=== PATIENT | female | born 1935 | race Caucasian/White ===

== ENCOUNTER 2019-03-18 14:45 | Inpatient (IN) | payer OTHER ==
[~2019-03-18] VITALS: Ht 147.3 cm; Wt 45.4 kg
--- NOTE | 2019-03-18 15:04 | NUR ---
Patient to ER bed 2 to gown for evaluation. Side rails up. Report given to Javier DOUGLAS.
[2019-03-18 15:13] VITALS: BP_SYST 147
--- NOTE | 2019-03-18 15:20 | NUR ---
Patient is awake, alert, and oriented x1. Patient states she for her blood pressure spiking and being controlled by her medication. Her board & care sent for weakness via EMS. Patient does not appear to be in any distress and vitals are within normal limits.
--- NOTE | 2019-03-18 15:40 | NUR ---
ER Dr. Duvall at bedside examining patient.
[2019-03-18] MEDS ORDERED: NS 500 ML IV ONE (15:45)
[2019-03-18 16:27] LABS: BASOPHILS # (AUTO) 0.2 K/uL (0.0-0.2); BASOPHILS % (AUTO) 3.5 % (0.0-2.0); EOSINOPHILS # (AUTO) 0.2 K/uL (0.0-0.4); EOSINOPHILS % (AUTO) 2.7 % (0.0-4.0); HEMATOCRIT 36.8 % (36-48); HEMOGLOBIN 12.2 g/dL (12.0-16.0); LYMPHOCYTES # (AUTO) 0.8 K/uL (1.0-5.5); LYMPHOCYTES % (AUTO) 12.5 % (20.5-51.5); MEAN CORPUSCULAR HEMOGLOBIN 32 pg (27-31); MEAN CORPUSCULAR HGB CONC 33 % (32-36); MEAN CORPUSCULAR VOLUME 95 fL (79.0-98.0); MONOCYTES # (AUTO) 0.8 K/uL (0.0-1.0); MONOCYTES % (AUTO) 11.9 % (1.7-9.3); NEUTROPHILS # (AUTO) 4.5 K/uL (1.8-7.7); NEUTROPHILS % (AUTO) 69.4 % (40.0-70.0); PLATELET COUNT (AUTO) 297 K/uL (130-430); RED BLOOD CELL COUNT(AUTO) 3.89 MIL/uL (4.2-6.2); WHITE BLOOD COUNT (AUTO) 6.5 K/uL (4.8-10.8)
[2019-03-18 16:30] LABS: ANION GAP 7 (5-15); CALCIUM 9.6 mg/dL (8.4-11.0); CHLORIDE 100 mmol/L (98-107); CREATININE 0.54 mg/dL (0.55-1.30); GLUCOSE 94 mg/dL (70-99); POTASSIUM 3.8 mmol/L (3.5-5.1); SODIUM SERUM 134 mmol/L (136-145); UREA NITROGEN, BLOOD 11 mg/dL (8-21)
[2019-03-18 16:36] LABS: PROTHROMBIN TIME 9.9 SECS (9.5-12.5)
[2019-03-18 16:43] LABS: BILIRUBIN,URINE NEGATIVE (NEGATIVE); BLOOD, URINE NEGATIVE (NEGATIVE); CLARITY/URINE CLEAR (CLEAR); COLOR,URINE YELLOW (YELLOW); GLUCOSE,URINE NEGATIVE (NEGATIVE); KETONES,URINE NEGATIVE (NEGATIVE); LEUKOCYTE ESTERASE ,URINE NEGATIVE (NEGATIVE); NITRITE, URINE NEGATIVE (NEGATIVE); PH,URINE 7.5 (5.0-8.0); PROTEIN URINE NEGATIVE (NEGATIVE); UROBILINOGEN,URINE 0.2 (0.2-1.0)
[2019-03-18 16:48] LABS: ALANINE AMINOTRANSFERASE 17 U/L (12-78); ALBUMIN 3.3 g/dL (3.4-4.8); ASPARTATE AMINOTRANSFERASE 18 U/L (10-37); TOTAL BILIRUBIN 0.3 mg/dL (0.0-1.0)
[2019-03-18] MEDS ORDERED: METO25TA3 PO (17:51)
[2019-03-18] MEDS ORDERED: HYDR-4037 PO (17:51)
[2019-03-18] MEDS ORDERED: OCUVITE PO (17:51)
[2019-03-18] MEDS ORDERED: AMLO2.5T2 PO (17:51)
--- NOTE | 2019-03-18 17:51 | NUR ---
Medication reconciliation completed based upon list of medications provided by the facility.
--- NOTE | 2019-03-18 17:57 | NUR ---
Patient will be admitted to care of Dr. Jeni Doss. Admitted to medsurg unit. Aleks RN to call back with room assignment. Belongings list completed. Summary report printed. Report will be given at bedside.
--- NOTE | 2019-03-18 18:10 | NUR ---
Patient transferred to room 132A via daniel and RN with patent and intact IV. Bedside report given to MISAEL Garcia for continuation of care.
--- NOTE | 2019-03-18 18:13 | NUR ---
ADMISSION NOTE Received patient from ER via daniel, received report from RICHELLE DOUGLAS. Patient admitted with diagnosis of . Patient oriented to hospital routine, call light, toileting and safety-patient verbalized understanding.
[2019-03-18 18:22] VITALS: BP_SYST 167
--- NOTE | 2019-03-18 18:50 | NUR ---
RIGHT FACIAL WEAKNESS, DROOP LIKE: Right face is droopy. Per patient it is chronic and its due to fribromyalgia. Patient gets Botox injection every two months.. Bilateral hand with equal lean consultant, bilateral lower extremities with strong pushes.
[2019-03-18] MEDS ORDERED: LORazepam 2 MG/ML VIAL IVP PRN (19:00)
[2019-03-18] MEDS ORDERED: HYDROcodone/ACETAMIN 10-325 MG TAB PO PRN (19:00)
[2019-03-18] MEDS ORDERED: hydrALAZINE HCL 10 MG TABLET PO PRN (19:00)
[2019-03-18] MEDS ORDERED: ACETAMINOPHEN 325 MG TABLET PO PRN (19:00)
[2019-03-18] MEDS ORDERED: HYDROcodone/ACETAMIN 5-325 MG TAB (NORCO/ VICODIN) PO PRN (19:00)
[2019-03-18] MEDS ORDERED: ONDANSETRON HCL 4 MG/2 ML VIAL IVP PRN (19:00)
[2019-03-18 20:20] VITALS: BP_SYST 110
--- NOTE | 2019-03-18 20:20 | NUR ---
Opening notes Pt AAOx4, VSS. pt talking to son on cellphone. IV saline lock L.AC 20G clear and patent. Call light within reach. Bed low, locked, siderails up x2, bed alarm on. Encouraged pt to call for assistance, pt verbalized understanding. To monitor.
[2019-03-18] MEDS: NORMAL SALINE 5 ML DISP.SYRIN IVF SCH (21:36)
[2019-03-18] MEDS ORDERED: NORMAL SALINE 5 ML DISP.SYRIN IVF SCH (22:00)
--- NOTE | 2019-03-18 22:30 | NUR ---
Rounds Pt asleep, easily arousable. No s/s distress noted. Call light within reach. Safety measures maintained. To monitor.
--- NOTE | 2019-03-19 00:45 | NUR ---
Rounds Pt asleep, respiration even and unlabored. Call light within reach. Bed low, locked, siderails up x2, alarm on. To monitor.
[2019-03-19 01:47] VITALS: BP_SYST 140
--- NOTE | 2019-03-19 02:10 | NUR ---
Rounds/BSC Pt awake, CLARIFYING PLANT OPERATOR assisted pt to use BSC. Pt voided. Call light within reach. To monitor.
--- NOTE | 2019-03-19 05:20 | NUR ---
Rounds Pt asleep, no s/s distress noted. Call light within reach. Bed low, locked, bed alarm on. To monitor.
--- NOTE | 2019-03-19 06:11 | NUR ---
Closing notes Pt asleep, no s/s distress noted. Pt turns in bed. IV L. hand 20G clear and patent. Call light within reach. Bed low, locked, side rail up x 2, bed alarm on. To endorse to AM nurse.
[2019-03-19] MEDS: NORMAL SALINE 5 ML DISP.SYRIN IVF SCH ×3 (06:20→21:17)
[2019-03-19 07:17] LABS: BASOPHILS % (AUTO) 0.8 % (0.0-2.0); EOSINOPHILS # (AUTO) 0.4 K/uL (0.0-0.4); EOSINOPHILS % (AUTO) 6.8 % (0.0-4.0); HEMOGLOBIN 12.6 g/dL (12.0-16.0); LYMPHOCYTES # (AUTO) 0.8 K/uL (1.0-5.5); LYMPHOCYTES % (AUTO) 14.6 % (20.5-51.5); MEAN CORPUSCULAR HEMOGLOBIN 32 pg (27-31); MEAN CORPUSCULAR HGB CONC 34 % (32-36); MEAN CORPUSCULAR VOLUME 95 fL (79.0-98.0); MONOCYTES # (AUTO) 0.6 K/uL (0.0-1.0); MONOCYTES % (AUTO) 11.8 % (1.7-9.3); NEUTROPHILS # (AUTO) 3.5 K/uL (1.8-7.7); PLATELET COUNT (AUTO) 281 K/uL (130-430); WHITE BLOOD COUNT (AUTO) 5.3 K/uL (4.8-10.8)
--- NOTE | 2019-03-19 07:20 | NUR ---
AM rounds: Received patient awake, oriented. Denies any pain. Patient wants to go home. Informed patient to wait for admitting MD to see her. Verbalized understanding. Call light within reach.
[2019-03-19 07:34] LABS: ALANINE AMINOTRANSFERASE 16 U/L (12-78); ALBUMIN 3.2 g/dL (3.4-4.8); ANION GAP 4 (5-15); ASPARTATE AMINOTRANSFERASE 15 U/L (10-37); CALCIUM 10.2 mg/dL (8.4-11.0); CHLORIDE 104 mmol/L (98-107); CREATININE 0.58 mg/dL (0.55-1.30); GLUCOSE 91 mg/dL (70-99); PHOSPHORUS 2.6 mg/dL (2.7-4.5); POTASSIUM 3.9 mmol/L (3.5-5.1); SODIUM SERUM 135 mmol/L (136-145); TOTAL BILIRUBIN 0.7 mg/dL (0.0-1.0); UREA NITROGEN, BLOOD 9 mg/dL (8-21)
[2019-03-19 07:41] VITALS: BP_SYST 120
[2019-03-19] MEDS: BETA-CAROTENE W-C & E/ZN/CU TABLET PO SCH (08:22)
[2019-03-19] MEDS: amLODIPine BESYLATE 5 MG TABLET PO SCH (08:23)
[2019-03-19] MEDS: METOPROLOL SUCCINATE 25 MG TAB.SR.24H (TOPROL XL) PO SCH (08:23)
--- NOTE | 2019-03-19 11:00 | NUR ---
Rounds: Patient in bed. Denies any pain.
[2019-03-19 11:02] VITALS: BP_SYST 107
[2019-03-19] MEDS ORDERED: LORazepam 1 MG TABLET PO PRN (13:30)
--- NOTE | 2019-03-19 13:30 | NUR ---
Rounds: Family members at bedside. Dr. Doss saw patient.
--- NOTE | 2019-03-19 13:46 | NUR ---
CONSULTATION PAGED/CALLED Reason for Consultation: HYPERTENSION Person Who was Notified: JB Consulting Physician: ELIZABETH CLEMENTE Escalator Operator Specialty: TRANSLATOR Ordering Physician: JUDIT CLEMENTE Addendum: 03/19/19 at 1353 by Radha Carballo RN DR. WIN WAREHOUSE STOCKER FOR DR. KORIN JOHNSON PHONE NO. [phone]
[2019-03-19 16:16] VITALS: BP_SYST 130
--- NOTE | 2019-03-19 18:26 | NUR ---
end of shift: Needs attended. No change in assessment.
[2019-03-19 19:00] VITALS: BP_SYST 148
--- NOTE | 2019-03-19 19:15 | NUR ---
change of shift.pt.presents stable status.pt.presents quiescent affect;calm.pt.presents rt.sided facial weakness;droop. pt.presents hx;fibromyalgia;etiology of the rt.facial weakness;droop.no c/o pain.nausea.iv access intact;patent;lock. the pt.utilizing the bs.call light/telephone w./in reach of the pt.
[2019-03-19 20:00] VITALS: BP_SYST 148
--- NOTE | 2019-03-19 20:00 | NUR ---
pt.assessed.v/s assessed;b/p values conveyed to the pt.w/in normal limits.pt.presents quiescent affect;calm,i have apprised the pt.that i may provide snacks/beverages w/in the shift.no requests posited @this hour.pt.utilizing the bsc.pt.capable to reposition self;in bed;oob pt.requires assistance;2/t lower extremity weakness.n c/o pain,nausea.general status stable.respiratory status stable@room air;02sat5=98%. call light/telephone w/in reach of the pt.
--- NOTE | 2019-03-19 21:00 | NUR ---
no medications scheduled@this hour everardo grover-flush ivp. Addendum: 03/20/19 at 0309 by Marquis Bocanegra RN [place] [facility] to bed.pt.repositioned.
--- NOTE | 2019-03-19 22:00 | NUR ---
pt.assessed.pt.presents quiescent affect;calm,somnolent.iv access intact.pt.capable to reposition self.general status stable. respiratory status stable;call light/telephone placed w/in reach of the pt.
--- NOTE | 2019-03-20 | NUR ---
pt.assessed.v/s assessed;values;b/p elevated.value conveyed to the pt.to review [id number]-ego-svfz.no c/o pain,nausea.no requests posited@this hour. pt.presents quiescent affect;calm.pt.capable to reposition self.genera status stable.respiratory status stable@room air.call light/ telephone w/in reach of the pt.
--- NOTE | 2019-03-20 00:15 | NUR ---
i have administered apresoline;10mg po/ativan;0.5mg po;pt.had requested ativan.pt.stated she was anxious. to f/u re;b/p medication efficacy.
[2019-03-20 01:00] VITALS: BP_SYST 130
--- NOTE | 2019-03-20 01:00 | NUR ---
i have re-assessed the b/p;values w/in normal limits.i have apprised the pt.of the b/p values.
[2019-03-20 01:44] VITALS: BP_SYST 157
--- NOTE | 2019-03-20 02:00 | NUR ---
pt.assessed.pt.presents quiescent affect;calm,somnolent.pt.capable to reposition self.general status stable.respiratory status stable.call light/telephone w/n reach of the pt.
--- NOTE | 2019-03-20 04:00 | NUR ---
pt.assessed.pt.presents quiescent affect;calm,somnolent.general status stable.respiratory status stable;unlabored.iv access ;intact.pt.capable to reposition self.call light/telephone w.in reach of the pt.
--- NOTE | 2019-03-20 05:00 | NUR ---
i have assisted the pt.to the bsc.i have assisted the pt's return to bed;pt.repositioned.i have changed the pt's gown. no additional requests@this hour.i have attended to then bsc;measured cleaned.placed w/in reach of the pt.
[2019-03-20] MEDS: NORMAL SALINE 5 ML DISP.SYRIN IVF SCH ×2 (05:18→14:08)
[2019-03-20 05:46] LABS: BASOPHILS # (AUTO) 0.1 K/uL (0.0-0.2); BASOPHILS % (AUTO) 1.5 % (0.0-2.0); EOSINOPHILS # (AUTO) 0.3 K/uL (0.0-0.4); EOSINOPHILS % (AUTO) 5.6 % (0.0-4.0); HEMATOCRIT 33.2 % (36-48); HEMOGLOBIN 11.2 g/dL (12.0-16.0); LYMPHOCYTES # (AUTO) 0.9 K/uL (1.0-5.5); LYMPHOCYTES % (AUTO) 16.5 % (20.5-51.5); MEAN CORPUSCULAR HEMOGLOBIN 32 pg (27-31); MEAN CORPUSCULAR HGB CONC 34 % (32-36); MEAN CORPUSCULAR VOLUME 95 fL (79.0-98.0); MONOCYTES # (AUTO) 0.7 K/uL (0.0-1.0); MONOCYTES % (AUTO) 12.3 % (1.7-9.3); NEUTROPHILS # (AUTO) 3.6 K/uL (1.8-7.7); NEUTROPHILS % (AUTO) 64.1 % (40.0-70.0); PLATELET COUNT (AUTO) 243 K/uL (130-430); RED BLOOD CELL COUNT(AUTO) 3.48 MIL/uL (4.2-6.2); RED CELL DISTRIBUTION WIDTH 12.8 % (9.0-15.0); WHITE BLOOD COUNT (AUTO) 5.7 K/uL (4.8-10.8)
--- NOTE | 2019-03-20 06:09 | NUR ---
pt assessed.pt.presents quiescent affect;calm,somnolent.general status stable.respiratory status stable;unlabored.pt.capable to reposition self.call light/telephone w/in reach of the pt.
[2019-03-20 06:43] LABS: ANION GAP 4 (5-15); CALCIUM 9.8 mg/dL (8.4-11.0); CHLORIDE 102 mmol/L (98-107); GLUCOSE 86 mg/dL (70-99); POTASSIUM 3.5 mmol/L (3.5-5.1); SODIUM SERUM 133 mmol/L (136-145); UREA NITROGEN, BLOOD 11 mg/dL (8-21)
--- NOTE | 2019-03-20 07:50 | NUR ---
OPENING NOTE RECEIVED PATIENT FROM LETTER SORTING MACHINE OPERATOR. PATIENT RESTING IN BED. EASILY AROUSABLE. ABLE TO MAKE NEEDS KNOWN. DENIES PAIN AT THIS TIME. COOPERATIVE. NO ACUTE DISTRESS. RESPIRATION EVEN AND UNLABORED. SKIN WARM AND DRY TO TOUCH. IV INTACT AND PATENT. BED IN LOW AND LOCKED POSITION. COMMODE AT BEDSIDE. SIDERAIL UP X2. CALL LIGHT IN REACH. ROOM NEAR NURSES STATION. ALL NEEDS MET. CONTINUE TO MONITOR.
[2019-03-20] MEDS: BETA-CAROTENE W-C & E/ZN/CU TABLET PO SCH (09:13)
[2019-03-20] MEDS: METOPROLOL SUCCINATE 25 MG TAB.SR.24H (TOPROL XL) PO SCH (09:14)
[2019-03-20] MEDS: amLODIPine BESYLATE 5 MG TABLET PO SCH (09:14)
--- NOTE | 2019-03-20 09:15 | NUR ---
MEDS PATIENT CONSUMED 100% BREAKFAST. ALL DUE MEDS ADMINISTERED, PAM WELL. ALL NEEDS MET. CALL LIGHT IN REACH
[2019-03-20 11:18] VITALS: BP_SYST 101
--- NOTE | 2019-03-20 11:45 | NUR ---
PT PATIENT AMBULATED WITH PHYSICAL THERAPY WITH FWW; PAM WELL. NO ACUTE DISTRESS. NO SOB. ALL NEEDS MET. CONT TO MONITOR.
--- NOTE | 2019-03-20 12:50 | NUR ---
SEEN AND EXAMINED BY DR. CARRILLO AT BEDSIDE. INFORMED MD CARDIO DR. AGUIRRE CALLED BUT HAS NOT SEEN PATIENT. DR. CARRILLO OKAY TO DISCHARGE PATIENT BACK TO BOARD AND CARE. DAUGHTER MONIE MADE AWARE.
[2019-03-20] MEDS ORDERED: LORA-259 PO (12:55)
--- NOTE | 2019-03-20 14:00 | NUR ---
IV FLUSH IV INTACT AND PATENT. NO REDNESS NOTED. FLUSHES FREELY. DENIES ANY PAIN. ALL NEEDS MET. CALL LIGHT IN REACH. CONT TO MONITOR
--- NOTE | 2019-03-20 14:40 | NUR ---
SS Note: DINING CAR SERVER met with pt and dtr Tameka at bedside for discharge planning and anxiety. Demographic information verified and updated (pt's phone numbers: [phone] and [phone] cell; Person to Notify: Anna Leonard, daughter @ [phone]). DINING CAR SERVER met with pt and pt was dressed to go home. Pt states she came in via ER when she was not feeling well. Pt states she lives at [facility] in [place]. Pt states she has anxiety and especially when she feels that her blood pressure is going up. Pt states sometimes, when she feels anxious she takes Ativan and her blood pressure also goes down. Pt states she received her Ativan prescription from her college coach. Pt denies being anxious now and denies any history of depression or mental health. Pt states she has a new PCP, Dr. Christianson but has not seen her yet. Pt states she had surgery at [facility] in January 2019 for her arm due to fall. Bob English states they are awaiting for her walker that will be provided by [facility] ; confirmed with [employer], they have a scheduled walker switch (the first one provided was too high) tomorrow 03/21. Daughter Tameka also stated she was told by Dr. Hodges, who did the patient's surgery, that the pt would benefit from outpatient physical therapy from [facility]. The prescription was written for home PT; DINING CAR SERVER encouraged Tameka to call Dr. Hodges and have office fax over [facility]; dtr agreed. DINING CAR SERVER provided Tameka and patient with [facility] and [facility]'s phone number to make an appointment and confirm wheelchair switch; Tameka agreed. No further social work needs, will remain available when needed.
[2019-03-20 15:30] VITALS: BP_SYST 149
--- NOTE | 2019-03-20 16:15 | NUR ---
D/C Patient Patient given medication reconciliation form and D/C instructions. Exit Care provided. Patient verbalized understanding. MD discussed with patient the results and treatment provided. Ambulatory with assist for discharge to home. Patient in stable condition, ID band removed. IV catheter removed, intact and dressing applied, no active bleeding. Rx of Ativan given. Patient and daughter Tameka educated on pain management. All belongings sent with patient.
--- NOTE | 2019-03-28 10:58 | NUR ---
DISCHARGE FOLLOW UP PHONE CALL WALT/ [facility] PHONED PATIENT, (NON WORKING #). CALLED DAUGHTER (JER) AT [phone]. DAUGHTER STATED THAT PATIENT WAS DOING GREAT, SHE IS AT A BOARDING CARE AT THE MOMENT. SHE HAS NO QUESTIONS ON HER DISCHARGE INSTRUCTIONS. SHE HAS FILLED HER PRESCRIPTION AND IS TAKING HER MEDICATIONS INSTRUCTED. SHE HAD A APPOINTMENT WITH [facility] YESTERDAY 03/27/19. SHE WILL BE HAVING PHYSICAL THERAPY NEXT WEEK AT [facility]. SHE HAS NO QUESTIONS OR CONCERNS. SHE WILL CALL THE HOSPITAL IF SHE HAS QUESTIONS IN THE FUTURE.
== END 2019-03-20 16:15 | disposition home or self-care (01) | DRG 641 ==
LOC: SED 14:45 → SMU 17:48
PROVIDERS: ADMIT Preventive Medicine Preventive Medicine/Occupational Environmental Medicine; ATTEND Preventive Medicine Preventive Medicine/Occupational Environmental Medicine
DX: E87.1 Hypo-osmolality and hyponatremia (principal); I16.9 Hypertensive crisis, unspecified; I10 Essential (primary) hypertension; F41.9 Anxiety disorder, unspecified; E88.09 Other disorders of plasma-protein metabolism, not elsewhere classified; D64.9 Anemia, unspecified; Z79.899 Other long term (current) drug therapy
CPT/HCPCS: 36415; 71045; 80048; 80053; 81003; 83605; 83735-TC; 84100-TC; 84484; 85025; 85610-TC; 85730-TC; 87040-TC; 87081; 87086; 93005; 96360; 97112-GP; 99285

== ENCOUNTER 2021-04-18 09:19 | Inpatient (IN) | payer OTHER, SELFPAY ==
[2021-04-14 14:48] LABS: EOSINOPHILS # (AUTO) 0.1 K/uL (0.0-0.4); EOSINOPHILS % (AUTO) 1.1 % (0.0-4.0); HEMATOCRIT 39.2 % (36-48); HEMOGLOBIN 13.1 g/dL (12.0-16.0); LYMPHOCYTES # (AUTO) 0.8 K/uL (1.0-5.5); LYMPHOCYTES % (AUTO) 12.7 % (20.5-51.5); MEAN CORPUSCULAR HEMOGLOBIN 32 pg (27-31); MEAN CORPUSCULAR HGB CONC 33 % (32-36); MEAN CORPUSCULAR VOLUME 95 fL (79.0-98.0); MONOCYTES # (AUTO) 0.7 K/uL (0.0-1.0); MONOCYTES % (AUTO) 10.6 % (1.7-9.3); PLATELET COUNT (AUTO) 255 K/uL (130-430); RED BLOOD CELL COUNT(AUTO) 4.12 MIL/uL (4.2-6.2); RED CELL DISTRIBUTION WIDTH 13.2 % (9.0-15.0); WHITE BLOOD COUNT (AUTO) 6.4 K/uL (4.8-10.8)
[2021-04-14 14:51] LABS: BASOPHILS % (AUTO) 0.3 % (0.0-2.0); NEUTROPHILS # (AUTO) 4.8 K/uL (1.8-7.7); NEUTROPHILS % (AUTO) 75.3 % (40.0-70.0)
[2021-04-14 15:03] LABS: PROTHROMBIN TIME 10.3 SECS (9.5-12.5)
[2021-04-14 15:07] LABS: ALANINE AMINOTRANSFERASE 19 U/L (12-78); ALBUMIN 3.3 g/dL (3.4-4.8); ANION GAP 6 (5-15); ASPARTATE AMINOTRANSFERASE 18 U/L (10-37); CHLORIDE 100 mmol/L (98-107); GLUCOSE 154 mg/dL (70-99); SODIUM SERUM 134 mmol/L (136-145); TOTAL BILIRUBIN 0.3 mg/dL (0.0-1.0); UREA NITROGEN, BLOOD 14 mg/dL (8-21)
[2021-04-14 18:00] LABS: BILIRUBIN,URINE NEGATIVE (NEGATIVE); COLOR,URINE YELLOW (YELLOW); GLUCOSE,URINE NEGATIVE (NEGATIVE); KETONES,URINE NEGATIVE (NEGATIVE); LEUKOCYTE ESTERASE ,URINE TRACE (NEGATIVE); NITRITE, URINE NEGATIVE (NEGATIVE); PH,URINE 6.5 (5.0-8.0); PROTEIN URINE NEGATIVE (NEGATIVE); UROBILINOGEN,URINE 0.2 (0.2-1.0)
[2021-04-14 18:15] LABS: BLOOD, URINE TRACE (NEGATIVE); CLARITY/URINE SLIGHTLY HAZY (CLEAR)
[2021-04-14 18:23] LABS: BACTERIA,URINE FEW /HPF (None Seen)
[2021-04-14 18:24] LABS: COARSE GRANULAR CASTS,URINE 0-10 /LPF (None Seen); MUCUS,URINE None Seen /LPF (None Seen)
[~2021-04-18] VITALS: Ht 149.9 cm; Wt 61.7 kg
[~2021-04-18 09:19] MED LIST: AMLO2.5T2 PO; HYDR-4037 PO; LORA-259 PO; METO25TA3 PO; OCUVITE PO
[2021-04-18] MEDS ORDERED: POLYMYXIN 500,000/BACIT.10,000 UNITS in NS IRR 1 L IR ONE (11:19)
[2021-04-18] MEDS ORDERED: HYDR-4037 PO (12:01)
[2021-04-18] MEDS ORDERED: LORA-258 PO (12:01)
[2021-04-18] MEDS ORDERED: AMLO2.5T2 PO (12:01)
[2021-04-18] MEDS ORDERED: LOSA1TAB3 PO (12:01)
[2021-04-18] MEDS ORDERED: ASPI-1393 PO (12:01)
[2021-04-18] MEDS ORDERED: METO25TA3 PO (12:01)
[2021-04-18] MEDS ORDERED: BUPIVACAINE LIPOSOME/PF 266 MG/20 ML VIAL INFIL ONE (12:40)
[2021-04-18] MEDS ORDERED: LR 1,000 ML IV SCH (13:30)
[2021-04-18] MEDS ORDERED: MEPERIDINE HCL/PF 25 MG/ML DISP.SYRIN IVP PRN (13:30)
[2021-04-18] MEDS ORDERED: ONDANSETRON HCL 4 MG/2 ML VIAL IVP PRN (13:30)
[2021-04-18] MEDS ORDERED: HYDROmorphone 1 MG/ML INJ. CARTRIDGE IVP PRN (15:00)
[2021-04-18] MEDS ORDERED: NALOXONE HCL 0.4 MG/ML AMP (NARCAN) IVP PRN ×2 (15:00→16:15)
[2021-04-18] MEDS ORDERED: fentaNYL CITRATE/PF 100 MCG/2 ML AMP ONE (15:18)
[2021-04-18] MEDS ORDERED: ePHEDrine sulfate 50 MG/ML VIAL ONE (15:18)
[2021-04-18] MEDS ORDERED: KETOROLAC TROMETHAMINE 30 MG VIAL ONE (15:18)
[2021-04-18] MEDS ORDERED: PROPOFOL 200MG/ 20ML VIAL (DIPRIVAN) IV ONE (15:18)
[2021-04-18] MEDS ORDERED: ONDANSETRON HCL 4 MG/2 ML VIAL ONE (15:18)
[2021-04-18] MEDS ORDERED: BUPIVACAINE /EPINEPHRINE/PF 0.25% 30 ML VIAL INJ ONE (15:18)
[2021-04-18] MEDS ORDERED: DEXAMETHASONE SOD PHOSPHATE 4 MG/ML VIAL ONE (15:18)
[2021-04-18] MEDS ORDERED: MIDAZOLAM HCL 5 MG/ML VIAL (VERSED) IV ONE (15:18)
[2021-04-18] MEDS ORDERED: LR 1,000 ML IV.SOLN IV ONE (15:18)
[2021-04-18] MEDS ORDERED: SEVOFLURANE 15 MIN GAS INH ONE (15:18)
[2021-04-18] MEDS ORDERED: HYDROmorphone 1 MG/ML INJ. CARTRIDGE ONE (15:28)
[2021-04-18] MEDS ORDERED: HYDROcodone/ACETAMIN 5-325 MG TAB (NORCO/ VICODIN) PO PRN (16:15)
[2021-04-18] MEDS ORDERED: HYDROmorphone 2 MG/ML VIAL IVP PRN (16:15)
[2021-04-18] MEDS ORDERED: ONDANSETRON 4 MG ODT TAB PO PRN (16:15)
[2021-04-18] MEDS ORDERED: LOSARTAN/HYDROCHLOROTHIAZIDE TAB (HYZAAR 50-12.5 MG) PO PRN (16:30)
[2021-04-18] MEDS ORDERED: hydrALAZINE HCL 10 MG TABLET PO PRN (16:30)
--- NOTE | 2021-04-18 17:22 | NUR ---
Received bedside report from Iliana/PERSONNEL COORDINATOR for continuity of care.
[2021-04-18 17:30] VITALS: BP_SYST 114
--- NOTE | 2021-04-18 17:30 | NUR ---
Opening Notes Received patient via bed, stable at this time. Patient is awake, alert and oriented x4. No resp distress noted. Breathing is even and unlabored. Pt denies any pain at this time. Pt appears anxious. Will follow up with Dr. Hodges about Ativan 0.5 mg PO medication. IV site on right hand 20 gauge intact at this time, LR via drip, infusing at this time. Pt is noted with a left leg, dressing. Per patient, "the dressing is way too tight on the top." Nurse adjusted wrap on top. No signs of bleeding noted at this time. Neurochecks performed on left leg: WNL. Pt is noted with right sided puffiness d/t adverse affect of Botox in the past, denies any history of stroke. Bilateral big toes are deformed at this time. Pt remains on bed rest, incontinent. Pt was oriented to the room, use of call light and doctors on case while in the hospital. Pt was successful in return demo of call light. Pt remains on regular diet. No c/o NVD, cough or abnormal bleeding at this time. Pt does report that urine/stool may be a little dark d/t eating prunes at home. Pt states she is vaccinated for COVID 19, PFIZER. All needs met at this time. Safety and fall precautions in place. Bed in lowest position, alarm on, locked. Will continue to monitor.
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
--- NOTE | 2021-04-18 18:55 | NUR ---
Closing Notes/Son Updated on pt status Patient is laying in bed, anxious at this time. No resp distress noted. Breathing is even and unlabored. Pt denies any pain at this time. IV site on right hand 20 gauge intact at this time, LR completed at this time. Left leg noted with gauze wrap, no signs of bleeding at this time. Ice packs provided on left leg. Neurochecks performed: WNL. Will endorse to next nurse to follow up with admission orders. Nurse s/w pt son, gave an update on patient status and plan of care. Per son, he is requesting that patient DOES NOT RECEIVE ANY NARCOTICS as this makes patient very confused. Son is asking for only Tylenol or Ibuprofen for pain. Will endorse to next nurse to follow up with Dr. Hodges. All needs met at this time. Safety and fall precautions in place. Bed in lowest position, alarm on, locked. Will continue to monitor.
--- NOTE | 2021-04-18 19:15 | NUR ---
OPENING NOTES: Received patient report from morning shift nurse. Patient in bed, breathing evenly and nonlabored on room air, no s/s of distress. Patient has an IV on the right hand 20G, patent, benign, and flushing. No s/s of infection or infiltration. Educated patient on plan of care and call light use. Fall/safety precaution. Will continue to monitor.
[2021-04-18 20:00] VITALS: BP_SYST 93
[2021-04-18] MEDS ORDERED: LORazepam 1 MG TABLET PO PRN (20:00)
[2021-04-18] MEDS ORDERED: traMADol HCL HCL 50 MG TABLET (ULTRAM) PO PRN (20:00)
[2021-04-18] MEDS ORDERED: KETOROLAC TROMETHAMINE 30 MG VIAL IVP PRN (20:00)
[2021-04-18] MEDS: DOCUSATE SODIUM 100 MG CAPSULE PO SCH (20:39)
[2021-04-18] MEDS ORDERED: FLU VACC QS2021-22(6MOS UP)/PF 0.5 ML/SYR SYRINGE I.M. PRN (20:45)
[2021-04-18] MEDS ORDERED: CEFAZOLIN 1 GM IVPB PREMIX 100 ML IV ONE (21:17)
[2021-04-18] MEDS: CEFAZOLIN 1 GM IVPB PREMIX 50 ML IV SCH (21:43)
--- NOTE | 2021-04-19 | NUR ---
ROUNDS: Patient in bed, eyes closed, breathing evenly and nonlabored on room air, no s/s of distress. Will continue to monitor.
[2021-04-19] MEDS: ACETAMINOPHEN 325 MG TABLET PO PRN ×2 (00:32→15:57)
[2021-04-19 01:00] VITALS: BP_SYST 91
[2021-04-19] MEDS: CEFAZOLIN 1 GM IVPB PREMIX 50 ML IV SCH (04:55)
--- NOTE | 2021-04-19 06:25 | NUR ---
CLOSING NOTES: Patient in bed, breathing evenly and nonlabored on room air, no s/s of distress. Patient has an IV on the right hand 20G, patent, benign, and flushing. No s/s of infection or infiltration. Fall/safety precaution. Will continue to monitor and endorse care to morning shift nurse. All needs met at this time.
[2021-04-19 07:50] VITALS: BP_SYST 94
[2021-04-19] MEDS: METOPROLOL SUCCINATE 25 MG TAB.SR.24H (TOPROL XL) PO SCH (08:27)
[2021-04-19] MEDS: DOCUSATE SODIUM 100 MG CAPSULE PO SCH ×2 (08:31→21:44)
[2021-04-19] MEDS: ENOXAPARIN SODIUM 40 MG/0.4 ML SYRINGE SUBCUT SCH (08:37)
--- NOTE | 2021-04-19 09:02 | NUR ---
pt's daughter called, updated with pt's status, she spoke with pt on the phone.
[2021-04-19 09:42] LABS: BASOPHILS % (AUTO) 0.2 % (0.0-2.0); HEMATOCRIT 23.8 % (36-48); HEMOGLOBIN 7.9 g/dL (12.0-16.0); LYMPHOCYTES # (AUTO) 0.7 K/uL (1.0-5.5); MEAN CORPUSCULAR HEMOGLOBIN 32 pg (27-31); MEAN CORPUSCULAR HGB CONC 33 % (32-36); MEAN CORPUSCULAR VOLUME 96 fL (79.0-98.0); MONOCYTES # (AUTO) 1.1 K/uL (0.0-1.0); MONOCYTES % (AUTO) 9.6 % (1.7-9.3); NEUTROPHILS # (AUTO) 9.5 K/uL (1.8-7.7); NEUTROPHILS % (AUTO) 84.2 % (40.0-70.0); PLATELET COUNT (AUTO) 184 K/uL (130-430); RED BLOOD CELL COUNT(AUTO) 2.49 MIL/uL (4.2-6.2); WHITE BLOOD COUNT (AUTO) 11.3 K/uL (4.8-10.8)
[2021-04-19 10:04] LABS: ANION GAP 10 (5-15); CALCIUM 9.1 mg/dL (8.4-11.0); CHLORIDE 99 mmol/L (98-107); CREATININE 0.91 mg/dL (0.55-1.30); GLUCOSE 140 mg/dL (70-99); POTASSIUM 4.2 mmol/L (3.5-5.1); SODIUM SERUM 131 mmol/L (136-145); UREA NITROGEN, BLOOD 20 mg/dL (8-21)
[2021-04-19 11:26] VITALS: BP_SYST 92
--- NOTE | 2021-04-19 11:55 | NUR ---
pt voided 200 ml using the bed cole. patient has no recorded voiding since 5 am yesterday.
[2021-04-19 15:57] VITALS: BP_SYST 93
--- NOTE | 2021-04-19 18:44 | NUR ---
pt voided 50 cc of foul smelling urine after being offered a bedpan.
--- NOTE | 2021-04-19 18:45 | NUR ---
pt has been stable the whole shift, bp still on the low side. pt was only given tylenol for pain. ecchymossis on left upper/inner thigh noted. all needs attended to and med. will endorse to night nurse.
[2021-04-19 20:00] VITALS: BP_SYST 109
[2021-04-20] VITALS: BP_SYST 119
[2021-04-20 08:30] VITALS: BP_SYST 123
[2021-04-20] MEDS: METOPROLOL SUCCINATE 25 MG TAB.SR.24H (TOPROL XL) PO SCH (09:00)
[2021-04-20] MEDS: ENOXAPARIN SODIUM 40 MG/0.4 ML SYRINGE SUBCUT SCH (09:53)
[2021-04-20] MEDS: DOCUSATE SODIUM 100 MG CAPSULE PO SCH ×2 (09:53→22:29)
--- NOTE | 2021-04-20 11:11 | NUR ---
Nutrition Update Tha Scale 14 noted. Pt admitted for unilateral primary OA, L knee. Diet: regular BMI: 30.3 kg/m2 RD to follow per nutrition care standards.
[2021-04-20] MEDS: ACETAMINOPHEN 325 MG TABLET PO PRN ×2 (11:16→23:00)
[2021-04-20 13:00] VITALS: BP_SYST 115
--- NOTE | 2021-04-20 16:19 | NUR ---
Dietitian Recommendations * Recommend Mechanical soft (finely chopped) * Encourage PO intake. * Consider carb-controlled diet at F/U if BG levels continue elevated LP, RD Please refer to Nutrition Assessment for details. Addendum: 04/20/21 at 1619 by Crystal AVILES Amended: Links added.
--- NOTE | 2021-04-20 17:08 | NUR ---
CM : faxed [facility] per dtr/Tameka request. DCP pending md order.
[2021-04-20 18:15] VITALS: BP_SYST 125
[2021-04-20 20:00] VITALS: BP_SYST 110
[2021-04-20 21:41] VITALS: BP_SYST 110
[2021-04-21 00:46] VITALS: BP_SYST 117
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
--- NOTE | 2021-04-21 04:16 | NUR ---
PT IS SLEEPING WELL NO PAIN , VSS
--- NOTE | 2021-04-21 06:06 | NUR ---
PT SLEPT WELL VSS NO PAIN
[2021-04-21 06:39] VITALS: BP_SYST 120
[2021-04-21 08:00] VITALS: BP_SYST 92
--- NOTE | 2021-04-21 08:00 | NUR ---
Opening note Patient is resting in bed A&Ox 3 , easily oriented but is forgetful. No complaint of pain or discomfort, no signs or symptoms of respiratory distress. IV is patent, no signs or symptoms or infiltration. Educated patient on plan of care, patient verbalized understanding, will reenforce teaching due to cognitive status. Surgical dressing is in place, will continue to monitor. Bed is in lowest position, call light within reach, fall and aspiration precautions are in place. Will continue to monitor.
[2021-04-21] MEDS: METOPROLOL SUCCINATE 25 MG TAB.SR.24H (TOPROL XL) PO SCH ×2 (08:11→08:19)
[2021-04-21] MEDS: DOCUSATE SODIUM 100 MG CAPSULE PO SCH ×2 (08:20→20:06)
[2021-04-21] MEDS: ENOXAPARIN SODIUM 40 MG/0.4 ML SYRINGE SUBCUT SCH (08:22)
[2021-04-21 12:06] VITALS: BP_SYST 96
--- NOTE | 2021-04-21 15:32 | NUR ---
RN note Patient is resting in bed, in stable condition, no complaint of pain or discomfort. Will continue to monitor.
[2021-04-21 16:30] VITALS: BP_SYST 97
--- NOTE | 2021-04-21 18:12 | NUR ---
Closing note Patient is resting in bed A&Ox 3 , easily oriented but is forgetful. No complaint of pain or discomfort, no signs or symptoms of respiratory distress. IV is patent, no signs or symptoms or infiltration. All needs were met. Surgical dressing is in place, clean dry and intact. Bed is in lowest position, call light within reach, fall and aspiration precautions are in place. Will endorse report to steward/stewardess night.
--- NOTE | 2021-04-21 19:30 | NUR ---
Opening note Received report from day shift. Pt is awake lying in bed. No s/s of respiratory distress or discomfort. IV site is intact and patent. Surgical dressing is clean, dry, intact. Fall and safety precautions in place with bed in lowest position, bed alarm on, and call light within reach.
[2021-04-21 20:00] VITALS: BP_SYST 110
[2021-04-21] MEDS: ACETAMINOPHEN 325 MG TABLET PO PRN (20:06)
[2021-04-21] MEDS: LORazepam 1 MG TABLET PO PRN (23:59)
[2021-04-22] VITALS: BP_SYST 122
--- NOTE | 2021-04-22 00:16 | NUR ---
Rounds Pt is sleeping. No s/s of respiratory distress. Breathing is even and unlabored. Vital signs stable. Fall and safety checks in place
--- NOTE | 2021-04-22 06:44 | NUR ---
Closing note Pt in bed, eyes closed. No s/s of respiratory distress or discomfort. IV site is intact and patent. Surgical dressing is clean, dry, intact. All needs met throughout shift. Fall and safety precautions in place with bed in lowest position, bed alarm on, and call light within reach. Will monitor until endorsed to day shift
[2021-04-22 08:00] VITALS: BP_SYST 120
[2021-04-22 08:51] LABS: ANION GAP 7 (5-15); CALCIUM 8.7 mg/dL (8.4-11.0); CHLORIDE 95 mmol/L (98-107); CREATININE 0.55 mg/dL (0.55-1.30); GLUCOSE 93 mg/dL (70-99); SODIUM SERUM 126 mmol/L (136-145); UREA NITROGEN, BLOOD 11 mg/dL (8-21)
[2021-04-22] MEDS: METOPROLOL SUCCINATE 25 MG TAB.SR.24H (TOPROL XL) PO SCH (08:53)
[2021-04-22] MEDS: DOCUSATE SODIUM 100 MG CAPSULE PO SCH ×2 (08:56→20:11)
[2021-04-22] MEDS: ENOXAPARIN SODIUM 40 MG/0.4 ML SYRINGE SUBCUT SCH (08:59)
[2021-04-22 11:22] LABS: BASOPHILS % (AUTO) 0.3 % (0.0-2.0); EOSINOPHILS % (AUTO) 0.5 % (0.0-4.0); LYMPHOCYTES # (AUTO) 0.8 K/uL (1.0-5.5); LYMPHOCYTES % (AUTO) 8.3 % (20.5-51.5); MEAN CORPUSCULAR HEMOGLOBIN 32 pg (27-31); MEAN CORPUSCULAR HGB CONC 34 % (32-36); MEAN CORPUSCULAR VOLUME 95 fL (79.0-98.0); MONOCYTES # (AUTO) 0.9 K/uL (0.0-1.0); MONOCYTES % (AUTO) 9.5 % (1.7-9.3); NEUTROPHILS # (AUTO) 7.6 K/uL (1.8-7.7); NEUTROPHILS % (AUTO) 81.4 % (40.0-70.0); PLATELET COUNT (AUTO) 227 K/uL (130-430); RED BLOOD CELL COUNT(AUTO) 2.08 MIL/uL (4.2-6.2); WHITE BLOOD COUNT (AUTO) 9.3 K/uL (4.8-10.8)
[2021-04-22 11:36] LABS: HEMATOCRIT 19.8 % (36-48); HEMOGLOBIN 6.7 g/dL (12.0-16.0)
--- NOTE | 2021-04-22 11:37 | NUR ---
critical received critical lab h/h 6.7 and 19.8, informed MISAEL Gamez
--- NOTE | 2021-04-22 11:49 | NUR ---
critical informed dr Hodges of patients H/H, new orders received
[2021-04-22 12:16] VITALS: BP_SYST 121
--- NOTE | 2021-04-22 12:54 | NUR ---
CM : Per [facility] , the pt is accepted to room # 216 A, report # [id number] [phone]. The dc is pending pt stabilization, Hgb 6.7 today with blood transfusion today.
--- NOTE | 2021-04-22 16:09 | NUR ---
Note Checked with Blood Bank - blood still not available at this time. Pt's son Zelalem and daughter Aliyah called for update on their mother's status.
[2021-04-22 16:15] VITALS: BP_SYST 106
--- NOTE | 2021-04-22 17:20 | NUR ---
NOTE Went to Blood Bank to pick up and delivery driver unit of Blood, was notified Blood not ready at this time - has to be retyped. Will call when Blood ready for transfusion.
[2021-04-22] MEDS: ACETAMINOPHEN 325 MG TABLET PO PRN (17:26)
--- NOTE | 2021-04-22 18:48 | NUR ---
Note Blood bank called unit of blood was ready. Went to pick blood. At 1835 - IV site was infiltrated and new IV started in left forearm, blood transfusion back infusing at this time. Pt was checked on q1' and PRN all shift for needs and care. Pt next to nurses' station for close observation. Pt's bed in low position and bed alarm on all shift. Pt worked with PT this afternoon - tolerated getting OOB well. Pt's left knee dressing CDI all shift. Call light within reach. Pt's daughter Tameka at bedside at this time. Pt sitting up in bed eating her dinner.
--- NOTE | 2021-04-22 19:30 | NUR ---
Opening note Received report from day shift. Pt is awake lying in bed receiving blood transfusion, tolerating well. No s/s of respiratory distress or discomfort. IV site is intact and patent. Surgical dressing on left leg is clean, dry, intact. Fall and safety precautions in place with bed in lowest position, bed alarm on, and call light within reach.
[2021-04-22 20:00] VITALS: BP_SYST 115
[2021-04-23] VITALS: BP_SYST 114
--- NOTE | 2021-04-23 00:15 | NUR ---
BT INITIATION: Consent signed per pt agreeing to administration of blood. Blood has been type and crossmatched. Blood sent from blood bank. Information on unit of blood checked against patient wristband at bedside by two nurses. All information matches. Patient or responsible constitution party informed of potential complications associated with blood transfusion. Informed of possible transfusion reaction symptoms. Aware of need to notify nurse at once of itching, shortness of breath, flushing, feeling of impending doom, or other symptoms not previously present. Vital signs taken within 15 minutes prior to initiation of transfusion. RN will remain with patient for first 15 minutes of transfusion at which time vital signs will be re-assessed.
--- NOTE | 2021-04-23 00:30 | NUR ---
NOTE Pt tolerating blood transfusion well, vital signs stable. No adverse reactions
--- NOTE | 2021-04-23 07:00 | NUR ---
Closing note Pt in bed, eyes closed. No s/s of respiratory distress or discomfort. Breathing even and unlabored. IV site is intact and patent. Surgical dressing is clean, dry, intact. All needs met throughout shift. Fall and safety precautions in place with bed in lowest position, bed alarm on, and call light within reach. Will monitor until endorsed to day shift
[2021-04-23 08:00] VITALS: BP_SYST 140
--- NOTE | 2021-04-23 08:05 | NUR ---
Opening note Patient is resting in bed A&O x4 slightly forgetful, easily reoriented, complains of pain or discomfort, IV is patent, no signs or symptoms of infiltration, no signs or symptoms of respiratory distress. Educated patient in plan of care, patient verbalized understanding will reenforce teaching throughout shift. Bed is in lowest position call light within reach fall and aspiration precautions are in place, will continue to monitor.
[2021-04-23] MEDS: ENOXAPARIN SODIUM 40 MG/0.4 ML SYRINGE SUBCUT SCH (08:18)
[2021-04-23] MEDS: DOCUSATE SODIUM 100 MG CAPSULE PO SCH ×2 (08:24→21:11)
[2021-04-23] MEDS: METOPROLOL SUCCINATE 25 MG TAB.SR.24H (TOPROL XL) PO SCH (08:24)
--- NOTE | 2021-04-23 08:29 | NUR ---
PHYSICAL THERAPY CO-SIGN The Physical Therapy Progress Notes documented by Medical Staff Director have been reviewed. Reviewed/Co-Signed by: Tunde Steiner Documentation Done by: COSME HAYDEN PTA Addendum: 04/23/21 at 0830 by Tunde Steiner PT Amended: Links added.
--- NOTE | 2021-04-23 09:58 | NUR ---
MD rounds Spoke with Dr. Palacios via telephone, new orders received. MD would like patient to be discharged to [facility], after labs are drawn and results received.
[2021-04-23 10:30] LABS: BASOPHILS % (AUTO) 0.5 % (0.0-2.0); EOSINOPHILS # (AUTO) 0.1 K/uL (0.0-0.4); EOSINOPHILS % (AUTO) 0.8 % (0.0-4.0); HEMATOCRIT 28.2 % (36-48); HEMOGLOBIN 9.8 g/dL (12.0-16.0); LYMPHOCYTES # (AUTO) 0.6 K/uL (1.0-5.5); LYMPHOCYTES % (AUTO) 6.7 % (20.5-51.5); MEAN CORPUSCULAR HEMOGLOBIN 31 pg (27-31); MEAN CORPUSCULAR HGB CONC 35 % (32-36); MEAN CORPUSCULAR VOLUME 89 fL (79.0-98.0); MONOCYTES # (AUTO) 0.9 K/uL (0.0-1.0); MONOCYTES % (AUTO) 10.3 % (1.7-9.3); NEUTROPHILS # (AUTO) 7.1 K/uL (1.8-7.7); NEUTROPHILS % (AUTO) 81.7 % (40.0-70.0); PLATELET COUNT (AUTO) 219 K/uL (130-430); RED BLOOD CELL COUNT(AUTO) 3.16 MIL/uL (4.2-6.2); RED CELL DISTRIBUTION WIDTH 14.8 % (9.0-15.0); WHITE BLOOD COUNT (AUTO) 8.7 K/uL (4.8-10.8)
[2021-04-23 10:37] LABS: ANION GAP 8 (5-15); CALCIUM 8.4 mg/dL (8.4-11.0); CHLORIDE 97 mmol/L (98-107); CREATININE 0.64 mg/dL (0.55-1.30); GLUCOSE 129 mg/dL (70-99); POTASSIUM 3.7 mmol/L (3.5-5.1); SODIUM SERUM 127 mmol/L (136-145); UREA NITROGEN, BLOOD 10 mg/dL (8-21)
--- NOTE | 2021-04-23 12:07 | NUR ---
RN note Patient is ambulating with PT, will refer to PT nots for progress.
[2021-04-23 12:35] VITALS: BP_SYST 132
[2021-04-23 16:19] VITALS: BP_SYST 138
--- NOTE | 2021-04-23 18:26 | NUR ---
Closing note Patient is resting in bed A&O x4 slightly forgetful, easily reoriented, no complaint of pain or discomfort, IV is patent, no signs or symptoms of infiltration, no signs or symptoms of respiratory distress. All needs were met Bed is in lowest position call light within reach fall and aspiration precautions are in place, will endorse report to lieutenant shift supervisor.
--- NOTE | 2021-04-23 19:30 | NUR ---
Opening note Received report from day shift. Pt is awake lying bed. No s/s of respiratory distress or discomfort. Breathing is even and unlabored. IV site is intact and patent. Left leg dressing is clean, dry, intact. Fall and safety precautions in place with bed in lowest position, bed alarm on, and call light within reach.
[2021-04-23 20:00] VITALS: BP_SYST 120
[2021-04-23] MEDS: LORazepam 1 MG TABLET PO PRN (21:13)
[2021-04-24] VITALS: BP_SYST 120
--- NOTE | 2021-04-24 00:16 | NUR ---
Rounds Pt is sleeping. No s/s of respiratory distress. No needs at this time. Fall and safety checks in place
--- NOTE | 2021-04-24 08:00 | NUR ---
OPENING NOTES ALERT AND ORIENTED. EATING BREAKFAST WELL. NO SHORTNESS OF BREATH ON ROOM AIR. DENIES ANY PAIN. EXPLAINED PLAN OF CARE TO PATIENT, VERBALIZED UNDERSTANDING. IV ON LEFT WRIST INTACT. SAFETY CHECKS DONE. CALL LIGHT WITHIN REACH. WILL MONITOR.
[2021-04-24 08:06] VITALS: BP_SYST 145
[2021-04-24] MEDS: DOCUSATE SODIUM 100 MG CAPSULE PO SCH ×2 (08:39→20:06)
[2021-04-24] MEDS: METOPROLOL SUCCINATE 25 MG TAB.SR.24H (TOPROL XL) PO SCH (08:40)
[2021-04-24] MEDS: ENOXAPARIN SODIUM 40 MG/0.4 ML SYRINGE SUBCUT SCH (08:41)
[2021-04-24 12:06] VITALS: BP_SYST 117
[2021-04-24 12:18] LABS: HEMATOCRIT 29.9 % (36-48); HEMOGLOBIN 10.4 g/dL (12.0-16.0)
[2021-04-24 12:44] LABS: ANION GAP 10 (5-15); CALCIUM 9.1 mg/dL (8.4-11.0); CHLORIDE 97 mmol/L (98-107); CREATININE 0.66 mg/dL (0.55-1.30); GLUCOSE 104 mg/dL (70-99); POTASSIUM 3.6 mmol/L (3.5-5.1); SODIUM SERUM 130 mmol/L (136-145); UREA NITROGEN, BLOOD 15 mg/dL (8-21)
--- NOTE | 2021-04-24 13:46 | NUR ---
CONSULTATION PAGED/CALLED Reason for Consultation: [] HYPONATREMIA Person Who was Notified: [] DR KOROMA Consulting Physician: [] DR KOROMA Keyboard Operator Specialty: [] INTERNAL MEDICINE, FAMILY MD, HOSPITALIST Ordering Physician: [] DR Carley MENDEZ
--- NOTE | 2021-04-24 15:07 | NUR ---
CM: discharge barriers: pending consultation for hyponatremia, na= 127 yesterday and 130 today.
[2021-04-24 16:21] VITALS: BP_SYST 122
--- NOTE | 2021-04-24 18:38 | NUR ---
CLOSING NOTES EATING DINNER. DR. KOROMA SAW PATIENT AT BEDSIDE. ORDERED ENSURE, TID. ALL NEEDS MET THROUGHOUT SHIFT. CALL LIGHT WITHIN REACH. WILL ENDORSE TO NIGHT NURSE.
--- NOTE | 2021-04-24 19:30 | NUR ---
OPENING NOTE RECEIVED REPORT FROM DAY RN. PT IN BED WITH RESPIRATIONS EVEN AND UNLABORED ON RA. NO SIGNS OF DISTRESS NOTED. PT CURRENTLY DENIES PAIN. SURGICAL DRESSING INTACT. NO ODOR OR DRAINAGE NOTED. IV INTACT AND PATENT. BED IN LOWEST AND LOCKED POSITION. SAFETY PRECAUTIONS IN PLACE. WILL CONTINUE TO MONITOR.
[2021-04-24 20:00] VITALS: BP_SYST 127
[2021-04-24] MEDS: ACETAMINOPHEN 325 MG TABLET PO PRN (20:08)
[2021-04-25] MEDS: LORazepam 1 MG TABLET PO PRN ×2 (01:08→23:07)
[2021-04-25 01:40] VITALS: BP_SYST 128
--- NOTE | 2021-04-25 03:25 | NUR ---
ROUNDS PT SLEEPING IN BED. NO SIGNS OF DISTRESS NOTED. BED IN LOWEST AND LOCKED POSITION. WILL CONTINUE TO MONITOR.
--- NOTE | 2021-04-25 06:12 | NUR ---
CLOSING NOTE PT LAYING IN BED WITH RESPIRATIONS EVEN AND UNLABORED ON RA. PT CURRENTLY DENIES PAIN OR SOB. LEFT WRIST IV 20G PATENT AND INTACT. SALINE LOCKED. NO SIGNS OF INFILTRATION NOTED. LEFT KNEE DRESSING INTACT. NO DRAINAGE OR ODOR NOTED. PATIENT ABLE TO MOVE BILATERAL FEET. BED IN LOWEST AND LOCKED POSITION. SAFETY/FALL PRECAUTIONS IN PLACE. WILL ENDORSE TO DAY RN.
[2021-04-25] MEDS: ENOXAPARIN SODIUM 40 MG/0.4 ML SYRINGE SUBCUT SCH (08:28)
[2021-04-25] MEDS: DOCUSATE SODIUM 100 MG CAPSULE PO SCH ×2 (08:29→20:29)
[2021-04-25] MEDS: METOPROLOL SUCCINATE 25 MG TAB.SR.24H (TOPROL XL) PO SCH (08:31)
[2021-04-25] MEDS: LOSARTAN POTASSIUM 50 MG TABLET (COZAAR) PO SCH (08:32)
[2021-04-25 12:21] VITALS: BP_SYST 113
--- NOTE | 2021-04-25 14:07 | NUR ---
Nutrition F/U RD reviewed pt's current EMR record including diet Hx, physician notes, nursing notes, pertinent labs/meds/procedures, care trends, and care activity. Admission Dx: Unilateral Primary Osteoarthritis, Left Knee PMH: HTN, Anxiety per H&P 03/18/19 Pt is POD 7 s/p procedure for left knee arthroplasty d/t Osteoarthritis 04/18 SARS-CoV-2 (PCR) Pending 04/14 Current Diet Order/Nutrition Support: Regular w/ Ensure Enlive TID x1 day Subjective Info: RD rounded to [facility] and spoke w/ pt's primary RN who reported that pt has a poor appetite and ate about 40-50% of breakfast. EXTERNAL RELATIONS MANAGER stated pt prefers to drink Ensure ONS and eat bananas. Bedscale wt taken: 133# -- note 3# decrease compared to 136# (04/20) within [address] spoke w/ pt at bedside and encouraged pt to try to increase PO intakes, but pt shook her head in disagreement and appeared to dislike hospital foods. RD inquired about food preferences, but pt did not elaborate. RD was notified by pt's primary RN that pt's daughter (Horacio Tovar) wanted to speak w/ this RD to communicate pt's food preferences. RD called pt's daughter at and they reported that pt prefers egg salad, tuna salad, and potato salad sandwiches (however, [facility] is unable to accommodate the egg and potato salads at this time) -- and that pt enjoys all fresh fruits. RD notified [facility] staff. Per EMR review, PO intake average of 39% x13 meals; last BM x2 04/21; Tha scale: 16 w/ L leg bruise. Pt is not meeting nutritional needs. Pertinent Medication: lovenox, colace Pertinent Labs: WBC 8.7 WNL; 04/24: Na 130 L, BG 104H Height (Feet) 4 feet Height (Inches) 11.00 inches Weight (Pounds) 136 pounds Weight (Calculated Kilograms) 61.779478 kilograms Patient Weight 61.689 kg Body Mass Index 27.47 kg/m2 %IBW 143 [place]/Adjusted Body Weight [place] 95#/43kg --- Adjust 105#/48kg Recent Weight Change No - per pt Weight Status Overweight Difficulty With: Chewing Food Allergies No - per pt Usual Diet At Home regular diet Skin Integrity Comment: Tha scale: 14. No problem identified Current % PO Fair (50-74%) Estimated Energy Expenditure (kcals/day) 8416-5001 (30-35 kcal/kg Adjust BW d/t healing surgery) Estimated Protein Required (g/day) 58-72 (1.2-1.5 gm/kg Adjust BW d/t healing surgery) Estimated Fluid Required (l/day) 1.2-1.4 (25-30 ml/kg Adjust BW d/t GERIAT maintenance) Problem/Etiology/Signs/Symptoms Inadequate oral intake related to chewing difficulty as evidenced by PO intake <50% and pt report. *no longer applicable -- pt prefers to be on regular diet Increased caloric intake related to surgical healing as evidenced by increased nutritional needs for post-op nutrient needs. *ongoing Expected Outcomes/Goals Monitor appetite and PO intake w/goal of pt meeting at least 75% of estimated nutritional needs, lab trending WNL, normal GI function, skin integrity w/ wt maintenance. Dietitian Recommendations * Recommend continuing regular diet w/ Ensure Enlive TID (ONS provides 1050 kcal/day, 60 gm protein/day) * Adhere to pt food preferences * Encourage PO intakes Follow Up High Risk: F/U in 2-3 days
--- NOTE | 2021-04-25 14:17 | NUR ---
Dietitian Recommendations * Recommend continuing regular diet w/ Ensure Enlive TID (ONS provides 1050 kcal/day, 60 gm protein/day) * Adhere to pt food preferences * Encourage PO intakes LP, RD Please refer to Nutrition F/U for details.
--- NOTE | 2021-04-25 15:35 | NUR ---
DISCHARGE PLANNING Per CM director, spoke with Dr Noonan and [facility] labs [facility] tomorrow morning.
[2021-04-25 16:37] VITALS: BP_SYST 119
--- NOTE | 2021-04-25 19:30 | NUR ---
INITIAL NOTE AT INITIAL ASSESSMENT, PATIENT IS RESTING IN BED, STABLE, NO SIGNS OF RESPIRATORY DISTRESS. PATIENT VERBALIZES NO PAIN. PLAN OF CARE FOR THE EVENING IS COMMUNICATED WITH THE PATIENT. PATIENT DEMONSTRATES CORRECT USAGE OF CALL LIGHT AT THIS TIME. BED IS LOCKED, ALARMED, AND AT THE LOWEST LEVEL. FALL SAFETY EDUCATION PROVIDED. FALL, SAFETY, RESPIRATORY, ASPIRATION, AND ORTHOPEDIC PRECAUTIONS WILL BE TAKEN THROUGHOUT THE SHIFT.
[2021-04-25 19:35] VITALS: BP_SYST 140
--- NOTE | 2021-04-25 20:30 | NUR ---
HYGIENE CARE NOTE PATIENT ASSISTED WITH BEDPAN FOR VOID, HYGIENE CARE IS PROVIDED AT THIS TIME, FRESH LINENS PROVIDED, AND PATIENT IS REPOSITIONED FOR COMFORT. PATIENT TOLERATED WELL. SHE IS COMPLAINING OF CONSTIPATION; MD WILL BE MADE AWARE. CALL LIGHT PLACED WITHIN REACH. BED IS LOCKED, ALARMED, AND AT THE LOWEST LEVEL.
--- NOTE | 2021-04-25 21:09 | NUR ---
PAGED DR. MENDEZ PAGED DR. MENDEZ FOR PATIENT'S COMPLAINT OF CONSTIPATION AT THIS TIME. ANSWERING CANE FEEDER JULIETTE WILL TRY TO REACH DR. MENDEZ NOW. AWAITING CALL BACK.
[2021-04-25 22:00] VITALS: BP_SYST 124
--- NOTE | 2021-04-25 22:15 | NUR ---
DR. MENDEZ ROUNDS DR. MENDEZ MAKING ROUNDS AT THIS TIME, HE WAS MADE AWARE OF PATIENT'S CONSTIPATION COMPLAINT. STATED HE WOULD PUT IN HIS OWN ORDERS FOR DUCOLAX.
[2021-04-25] MEDS: BISACODYL 5 MG TABLET.DR (DULCOLAX) PO PRN (23:03)
--- NOTE | 2021-04-25 23:07 | NUR ---
ANXIETY NOTE PATIENT IS COMPLAINING OF ANXIETY, PRN MEDICATION WILL BE GIVEN AT THIS TIME FOR PATIENTS ANXIETY COMPLAINT PER MD ORDERS. WILL REASSESS IF PRN MEDICATION GIVEN WAS EFFECTIVE. CALL LIGHT PLACED WITHIN REACH. BED IS LOCKED, ALARMED, AND AT THE LOWEST LEVEL.
[2021-04-26] VITALS (7 sets, daily range): BP systolic 119–142
--- NOTE | 2021-04-26 06:48 | NUR ---
CLOSING NOTE PATIENT SLEPT WELL THROUGHOUT THE SHIFT, NO SHORTNESS OF BREATH NOTED. AT THIS TIME, PATIENT IS RESTING IN BED, STABLE, NO SIGNS OF RESPIRATORY DISTRESS. CALL LIGHT IS WITHIN REACH. BED IS LOCKED, ALARMED, AND AT THE LOWEST LEVEL. FALL, SAFETY, AND RESPIRATORY PRECAUTIONS HAVE BEEN TAKEN THROUGHOUT THE SHIFT. WILL CONTINUE TO MONITOR UNTIL SHIFT REPORT IS GIVEN AT BEDSIDE TO AM NURSE. ORTHOPEDIC PRECAUTIONS HAVE BEEN TAKEN THROUGHOUT THE SHIFT.
[2021-04-26 07:06] LABS: BASOPHILS # (AUTO) 0.1 K/uL (0.0-0.2); BASOPHILS % (AUTO) 0.6 % (0.0-2.0); EOSINOPHILS # (AUTO) 0.4 K/uL (0.0-0.4); EOSINOPHILS % (AUTO) 3.7 % (0.0-4.0); HEMATOCRIT 30.1 % (36-48); HEMOGLOBIN 10.4 g/dL (12.0-16.0); LYMPHOCYTES # (AUTO) 0.8 K/uL (1.0-5.5); LYMPHOCYTES % (AUTO) 7.8 % (20.5-51.5); MEAN CORPUSCULAR HEMOGLOBIN 31 pg (27-31); MEAN CORPUSCULAR HGB CONC 35 % (32-36); MEAN CORPUSCULAR VOLUME 90 fL (79.0-98.0); MONOCYTES # (AUTO) 0.9 K/uL (0.0-1.0); MONOCYTES % (AUTO) 8.8 % (1.7-9.3); NEUTROPHILS # (AUTO) 7.7 K/uL (1.8-7.7); NEUTROPHILS % (AUTO) 79.1 % (40.0-70.0); PLATELET COUNT (AUTO) 291 K/uL (130-430); RED BLOOD CELL COUNT(AUTO) 3.33 MIL/uL (4.2-6.2); RED CELL DISTRIBUTION WIDTH 14.8 % (9.0-15.0); WHITE BLOOD COUNT (AUTO) 9.8 K/uL (4.8-10.8)
[2021-04-26] MEDS: LOSARTAN POTASSIUM 50 MG TABLET (COZAAR) PO SCH (08:03)
[2021-04-26] MEDS: METOPROLOL SUCCINATE 25 MG TAB.SR.24H (TOPROL XL) PO SCH (08:03)
[2021-04-26] MEDS: DOCUSATE SODIUM 100 MG CAPSULE PO SCH ×2 (08:03→21:00)
[2021-04-26] MEDS: ENOXAPARIN SODIUM 40 MG/0.4 ML SYRINGE SUBCUT SCH (08:13)
[2021-04-26 08:15] LABS: ANION GAP 8 (5-15); CALCIUM 9.1 mg/dL (8.4-11.0); CHLORIDE 94 mmol/L (98-107); CREATININE 0.55 mg/dL (0.55-1.30); GLUCOSE 98 mg/dL (70-99); POTASSIUM 3.4 mmol/L (3.5-5.1); SODIUM SERUM 126 mmol/L (136-145); UREA NITROGEN, BLOOD 12 mg/dL (8-21)
--- NOTE | 2021-04-26 10:54 | NUR ---
Family visiting and at bedside.
[2021-04-26] MEDS ORDERED: NACL 0.9% 500 ML IV ONE (13:30)
[2021-04-26] MEDS ORDERED: POTASSIUM CHLORIDE 20 MEQ/PKT PACKET PO ONE (13:30)
[2021-04-26] MEDS ORDERED: SODIUM CHLORIDE 500 MG TABLET PO ONE (16:15)
--- NOTE | 2021-04-26 18:06 | NUR ---
Dr Hodges at bedside talking to Pt and pt's family member
[2021-04-26] MEDS: SODIUM CHLORIDE 500 MG TABLET PO SCH (21:59)
[2021-04-26] MEDS: ACETAMINOPHEN 325 MG TABLET PO PRN (22:01)
[2021-04-27 00:35] VITALS: BP_SYST 138
[2021-04-27 04:08] VITALS: BP_SYST 128
[2021-04-27 07:45] VITALS: BP_SYST 137
--- NOTE | 2021-04-27 08:00 | NUR ---
AM NOTES PT IN BED A/OX4. DENIES ANY PAIN OR SOB AT THIS TIME. RES EVEN AND UNLABORED. VITALS STABLE.SAFTEY/FALL PRECAUTIONS IN PLACE. CALL LIGHT WITHIN REACH. BED LOCKED AND IN LOW POSITIONED.CALL LIGHT WITHIN EACH. KEPT COMFORTABLE .WILL CONITNUE TO MONITOR
[2021-04-27] MEDS: SODIUM CHLORIDE 500 MG TABLET PO SCH ×2 (08:40→20:44)
[2021-04-27] MEDS: DOCUSATE SODIUM 100 MG CAPSULE PO SCH ×2 (08:41→20:44)
--- NOTE | 2021-04-27 08:43 | NUR ---
PAGED PAGED JUDSON RITTER AT [phone] SPOKE WITH DARRELL.
[2021-04-27] MEDS: LOSARTAN POTASSIUM 50 MG TABLET (COZAAR) PO SCH (08:48)
[2021-04-27] MEDS: METOPROLOL SUCCINATE 25 MG TAB.SR.24H (TOPROL XL) PO SCH (08:48)
--- NOTE | 2021-04-27 09:27 | NUR ---
2ND PAGE OUT TO PAGED JUDSON RITTER AT [phone] SPOKE WITH DARRELL.
--- NOTE | 2021-04-27 10:00 | NUR ---
CALL NOTICED PT HAS LARGE DARK RED/PURPLE SKIN DISCOLORATION ECCHYMOSIS ON LEFT UPPER THIGH/HIP AREA. NOTIFIED DR MENDEZ PER DR MENDEZ OK TO GIVE LOVENOX PRESCRIBED
--- NOTE | 2021-04-27 10:06 | NUR ---
3RD PAGE OUT TO PAGED JUDSON RITTER AT [phone] SPOKE WITH MARLO,
[2021-04-27 10:22] LABS: ANION GAP 9 (5-15); CALCIUM 8.8 mg/dL (8.4-11.0); CHLORIDE 97 mmol/L (98-107); CREATININE 0.53 mg/dL (0.55-1.30); GLUCOSE 93 mg/dL (70-99); POTASSIUM 3.6 mmol/L (3.5-5.1); SODIUM SERUM 129 mmol/L (136-145); UREA NITROGEN, BLOOD 18 mg/dL (8-21)
[2021-04-27] MEDS: ENOXAPARIN SODIUM 40 MG/0.4 ML SYRINGE SUBCUT SCH (10:23)
[2021-04-27 12:22] VITALS: BP_SYST 118
[2021-04-27 13:25] LABS: BASOPHILS # (AUTO) 0.1 K/uL (0.0-0.2); BASOPHILS % (AUTO) 1.3 % (0.0-2.0); EOSINOPHILS # (AUTO) 0.4 K/uL (0.0-0.4); EOSINOPHILS % (AUTO) 3.5 % (0.0-4.0); HEMATOCRIT 27.8 % (36-48); HEMOGLOBIN 9.5 g/dL (12.0-16.0); LYMPHOCYTES # (AUTO) 0.9 K/uL (1.0-5.5); LYMPHOCYTES % (AUTO) 8.4 % (20.5-51.5); MEAN CORPUSCULAR HEMOGLOBIN 31 pg (27-31); MEAN CORPUSCULAR HGB CONC 34 % (32-36); MEAN CORPUSCULAR VOLUME 92 fL (79.0-98.0); MONOCYTES % (AUTO) 9.6 % (1.7-9.3); NEUTROPHILS # (AUTO) 7.9 K/uL (1.8-7.7); NEUTROPHILS % (AUTO) 77.2 % (40.0-70.0); PLATELET COUNT (AUTO) 276 K/uL (130-430); RED BLOOD CELL COUNT(AUTO) 3.02 MIL/uL (4.2-6.2); WHITE BLOOD COUNT (AUTO) 10.3 K/uL (4.8-10.8)
[2021-04-27 16:32] VITALS: BP_SYST 130
--- NOTE | 2021-04-27 18:04 | NUR ---
family at bed side. seen by dr pastrana. encouraged po intake. pt cleaned linen changed. denies any pain at this time.
--- NOTE | 2021-04-27 18:35 | NUR ---
CLOSING NOTES PT STABLE NOT IN ACUTE DISTRESS. DENIES ANY PAIN . NEEDS ATTENDED.SAFETY/FALL PRECAUTIONS MAINTAINED .CALLLIGHT WITHIN REACH. WE WILL ENDORSE TO NIGHT NURSE
[2021-04-27 20:37] VITALS: BP_SYST 113
--- NOTE | 2021-04-27 20:44 | NUR ---
MED PASS PATIENT DUE MEDICATIONS GIVEN AND TOLERATED. VITAL SIGNS STABLE. BED IN LOWEST LOCKED POSITION WITH ALARM ON. LEFT KNEE BERENICE INTACT WITH LEG ELEVATED ON A PILLOW. HS SNACK PROVIDED.
--- NOTE | 2021-04-27 23:30 | NUR ---
ROUNDS PATIENT RESTING IN BED. NO DISTRESS NOTED.
[2021-04-28 00:10] VITALS: BP_SYST 125
[2021-04-28] MEDS: LORazepam 1 MG TABLET PO PRN (01:23)
--- NOTE | 2021-04-28 01:23 | NUR ---
ANXIETY PATIENT REQUESTED ATIVAN. PATIENT VERBALIZES SHE FEELS ANXIOUS AND COULD NOT SLEEP.
--- NOTE | 2021-04-28 03:30 | NUR ---
ROUNDS PATIENT RESTING IN BED. BREATHING UNLABORED. BED ALARM ON.
[2021-04-28 06:23] LABS: BASOPHILS # (AUTO) 0.1 K/uL (0.0-0.2); BASOPHILS % (AUTO) 0.9 % (0.0-2.0); EOSINOPHILS # (AUTO) 0.4 K/uL (0.0-0.4); EOSINOPHILS % (AUTO) 4.3 % (0.0-4.0); HEMATOCRIT 27.6 % (36-48); HEMOGLOBIN 9.5 g/dL (12.0-16.0); LYMPHOCYTES # (AUTO) 0.8 K/uL (1.0-5.5); LYMPHOCYTES % (AUTO) 8.4 % (20.5-51.5); MEAN CORPUSCULAR HEMOGLOBIN 31 pg (27-31); MEAN CORPUSCULAR HGB CONC 34 % (32-36); MEAN CORPUSCULAR VOLUME 91 fL (79.0-98.0); MONOCYTES # (AUTO) 0.9 K/uL (0.0-1.0); MONOCYTES % (AUTO) 9.8 % (1.7-9.3); NEUTROPHILS # (AUTO) 7.1 K/uL (1.8-7.7); NEUTROPHILS % (AUTO) 76.6 % (40.0-70.0); PLATELET COUNT (AUTO) 294 K/uL (130-430); RED BLOOD CELL COUNT(AUTO) 3.02 MIL/uL (4.2-6.2); RED CELL DISTRIBUTION WIDTH 14.9 % (9.0-15.0); WHITE BLOOD COUNT (AUTO) 9.3 K/uL (4.8-10.8)
[2021-04-28 06:45] LABS: ANION GAP 8 (5-15); CALCIUM 8.7 mg/dL (8.4-11.0); CHLORIDE 95 mmol/L (98-107); CREATININE 0.54 mg/dL (0.55-1.30); GLUCOSE 97 mg/dL (70-99); POTASSIUM 3.6 mmol/L (3.5-5.1); SODIUM SERUM 127 mmol/L (136-145); UREA NITROGEN, BLOOD 18 mg/dL (8-21)
--- NOTE | 2021-04-28 06:53 | NUR ---
CLOSING NOTES NO CHANGE IN PATIENT CONDITION. PATIENT NEEDS ATTENDED. CALL LIGHT WITH IN REACH.
[2021-04-28 08:00] VITALS: BP_SYST 117
--- NOTE | 2021-04-28 08:11 | NUR ---
OPENING NOTES: PATIENT EATING BREAKFAST. BREATHING EVEN AND NON LABORED TO RA. BED LOCKED, ALARM ON AND IN LOWEST POSITION. FALL, SAFETY AND ASPIRATION PRECAUTION REINFORCED. CALL LIGHT WITHIN REACH. WILL CONTINUE MONITOR PATIENT.
--- NOTE | 2021-04-28 09:33 | NUR ---
PHYSICAL THERAPY CO-SIGN The Physical Therapy Progress Notes documented by Machinist 2Nd Shift have been reviewed. Reviewed/Co-Signed by: Tunde Steiner Documentation Done by: COSME HAYDEN PTA Addendum: 04/28/21 at 8984 by Tunde Steiner PT Amended: Links added.
[2021-04-28] MEDS: DOCUSATE SODIUM 100 MG CAPSULE PO SCH ×2 (09:37→21:56)
[2021-04-28] MEDS: LOSARTAN POTASSIUM 50 MG TABLET (COZAAR) PO SCH (09:37)
[2021-04-28] MEDS: METOPROLOL SUCCINATE 25 MG TAB.SR.24H (TOPROL XL) PO SCH (09:38)
[2021-04-28] MEDS: SODIUM CHLORIDE 500 MG TABLET PO SCH ×2 (09:38→21:56)
[2021-04-28] MEDS: ENOXAPARIN SODIUM 40 MG/0.4 ML SYRINGE SUBCUT SCH (09:40)
[2021-04-28 11:27] VITALS: BP_SYST 91
--- NOTE | 2021-04-28 14:05 | NUR ---
Nutrition F/U RD reviewed pt's current EMR record including diet Hx, physician notes, nursing notes, pertinent labs/meds/procedures, care trends, and care activity. Admission Dx: Unilateral Primary Osteoarthritis, Left Knee PMH: HTN, Anxiety per H&P 03/18/19 Pt is POD 7 s/p procedure for left knee arthroplasty d/t Osteoarthritis 04/18, HTN, Anemia. SARS-CoV-2 (PCR) Pending 04/14 Current Diet Order/Nutrition Support: Regular w/ Ensure Enlive TID x4 days Subjective Info: legal summer intern couldnt go to pts room d/t COVID (PCR) pending, RN reported that pt has a poor appetite and ate about 40-50% of meals, pt dislike hospital foods. From previous DI visit, pt verbalized that she liked Ensure and would like to receive it while here in the hospital. Per EMR review, abd is soft w/ active bowel sound, BM x3 04/28, chap[place]ito scale: 17, Ecchymosis in the lateral left thigh and lateral back w/ incision in the left leg, +2 non-pitting edema. Pt is not meeting nutritional needs. Pertinent Medication: lovenox, Colace, Cozaar. Pertinent Labs: WBC 9.3 WNL, Na 127L, BG 97WNL, CR 0.54L. Height: 4 feet, 11.00 inches Weight: 136 pounds, 61.317494 kilograms (04/25)-- Stable Body Mass Index 27.47 kg/m2 %IBW : 143 [place]/Adjusted Body Weight [place] 95#/43kg --- Adjust 105#/48kg Estimated Energy Expenditure (kcals/day) 4691-6312 (30-35 kcal/kg Adjust BW d/t healing surgery) Estimated Protein Required (g/day) 58-72 (1.2-1.5 gm/kg Adjust BW d/t healing surgery) Estimated Fluid Required (l/day) 1.2-1.4 (25-30 ml/kg Adjust BW d/t GERIAT maintenance) Problem/Etiology/Signs/Symptoms Inadequate oral intake related to chewing difficulty as evidenced by PO intake <50% and pt report. *no longer applicable -- pt prefers to be on regular diet Increased caloric intake related to surgical healing as evidenced by increased nutritional needs for post-op nutrient needs. *ongoing Expected Outcomes/Goals Monitor appetite and PO intake w/goal of pt meeting at least 75% of estimated nutritional needs, lab trending WNL, normal GI function, skin integrity w/ wt maintenance. Dietitian Recommendations * Recommend continuing regular diet w/ Ensure Enlive TID (ONS provides 1050 kcal/day, 60 gm protein/day) * Encourage PO intakes Follow Up Moderate Risk: F/U in 3-5 days
--- NOTE | 2021-04-28 14:08 | NUR ---
Dietitian Recommendations * Recommend continuing regular diet w/ Ensure Enlive TID (ONS provides 1050 kcal/day, 60 gm protein/day) * Encourage PO intakes Please see Nutrition F/U
[2021-04-28 15:41] VITALS: BP_SYST 101
[2021-04-28] MEDS: ACETAMINOPHEN 325 MG TABLET PO PRN ×2 (15:55→21:57)
--- NOTE | 2021-04-28 19:00 | NUR ---
CLOSING NOTES: PATIENT RESTING IN BE. NO S/S OF ACUTE DISTRESS NOTED. BED LOCKED, ALARM ON AND IN LOWEST POSITION. CALL LIGHT WITHIN REACH.
--- NOTE | 2021-04-28 19:15 | NUR ---
OPENING NOTES: Received patient report from morning shift nurse. Patient in bed, breathing evenly and nonlabored on room air, no s/s of distress. Patient has an IV on the left wrist 20G, patent, benign, and flushing. No s/s of infection or infiltration. Educated patient on plan of care and call light use. Patient verbalized understanding with return demonstration. Will continue to monitor. Fall/safety precaution.
[2021-04-28 20:00] VITALS: BP_SYST 110
[2021-04-29] VITALS: BP_SYST 145
--- NOTE | 2021-04-29 | NUR ---
ROUNDS: Patient in bed, eyes closed, breathing evenly and nonlabored on room air, no s/s of distress. Will continue to monitor.
--- NOTE | 2021-04-29 06:35 | NUR ---
CLOSING NOTES: Patient in bed, breathing evenly and nonlabored on room air, no s/s of distress. Patient has an IV on the left wrist 20G, patent, benign, and flushing. No s/s of infection or infiltration. Will continue to monitor and endorse care to morning shift nurse. Fall/safety precaution. All needs met at this time.
[2021-04-29 07:21] LABS: ANION GAP 10 (5-15); CALCIUM 8.9 mg/dL (8.4-11.0); CHLORIDE 95 mmol/L (98-107); CREATININE 0.58 mg/dL (0.55-1.30); GLUCOSE 98 mg/dL (70-99); POTASSIUM 3.7 mmol/L (3.5-5.1); SODIUM SERUM 128 mmol/L (136-145); UREA NITROGEN, BLOOD 19 mg/dL (8-21)
[2021-04-29 08:49] VITALS: BP_SYST 132
[2021-04-29] MEDS: LOSARTAN POTASSIUM 50 MG TABLET (COZAAR) PO SCH (09:02)
[2021-04-29] MEDS: DOCUSATE SODIUM 100 MG CAPSULE PO SCH ×2 (09:02→20:12)
[2021-04-29] MEDS: METOPROLOL SUCCINATE 25 MG TAB.SR.24H (TOPROL XL) PO SCH (09:03)
[2021-04-29] MEDS: SODIUM CHLORIDE 500 MG TABLET PO SCH ×2 (09:03→20:13)
[2021-04-29] MEDS: ENOXAPARIN SODIUM 40 MG/0.4 ML SYRINGE SUBCUT SCH (09:06)
[2021-04-29 11:30] VITALS: BP_SYST 126
--- NOTE | 2021-04-29 13:00 | NUR ---
RN NOTES;' INCONTINENT CARE DONE. HOB OF THE BED ELEVATED. BED LOCKED, ALARM ON AND IN LOWEST POSITION. CALL LIGHT WITHIN REACH.
[2021-04-29 15:48] VITALS: BP_SYST 136
--- NOTE | 2021-04-29 18:41 | NUR ---
PATIENT EATING DINNER. NO S/S OF ACUTE DISTRESS NOTED. BED LOCKED, ALARM ON AND IN LOWEST POSITION. FALL, SAFETY AND ASPIRATION MEASURES PROVIDED. CALL LIGHT WITHIN REACH. Addendum: 04/29/21 at 1843 by Jess Kaur RN CLOSING NOTES:
[2021-04-29 20:00] VITALS: BP_SYST 147
[2021-04-29] MEDS: ACETAMINOPHEN 325 MG TABLET PO PRN (20:13)
--- NOTE | 2021-04-30 | NUR ---
ROUNDS: Patient in bed, eyes closed, breathing evenly and nonlabored on room air, no s/s of distress.Will continue to monitor.
[2021-04-30 00:04] VITALS: BP_SYST 130
[2021-04-30 07:18] LABS: ANION GAP 7 (5-15); CALCIUM 9.3 mg/dL (8.4-11.0); CHLORIDE 98 mmol/L (98-107); CREATININE 0.51 mg/dL (0.55-1.30); GLUCOSE 89 mg/dL (70-99); POTASSIUM 3.7 mmol/L (3.5-5.1); SODIUM SERUM 129 mmol/L (136-145); UREA NITROGEN, BLOOD 17 mg/dL (8-21)
[2021-04-30 08:00] VITALS: BP_SYST 152
[2021-04-30] MEDS: LOSARTAN POTASSIUM 50 MG TABLET (COZAAR) PO SCH (10:00)
[2021-04-30] MEDS: DOCUSATE SODIUM 100 MG CAPSULE PO SCH ×2 (10:01→21:00)
[2021-04-30] MEDS: ENOXAPARIN SODIUM 40 MG/0.4 ML SYRINGE SUBCUT SCH (10:05)
[2021-04-30] MEDS: METOPROLOL SUCCINATE 25 MG TAB.SR.24H (TOPROL XL) PO SCH (10:08)
[2021-04-30] MEDS: SODIUM CHLORIDE 500 MG TABLET PO SCH ×2 (10:10→21:00)
[2021-04-30 11:22] VITALS: BP_SYST 95
[2021-04-30 13:27] VITALS: BP_SYST 144
--- NOTE | 2021-04-30 13:27 | NUR ---
CM: Booked a will call ambulance with [facility] ambulance # [phone]. Marilu/Heath Roe will call back with confirmed insurance approval and bed assignment. ISAC, Violetta english.
--- NOTE | 2021-04-30 19:30 | NUR ---
Opening note Received patient report from morning nurse. Patient in bed, AAOx3, nonlabored on room air, no s/s of SOB. L wrist SL, patent and intact. Educated patient on plan of care and call light usage for assistance. Patient verbalized understanding. All needs provided. Will continue to monitor.
[2021-04-30 20:00] VITALS: BP_SYST 142
[2021-04-30 23:56] VITALS: BP_SYST 140
--- NOTE | 2021-05-01 | NUR ---
note provided skin care and lilly-care. no discomfort or distress noted. All needs provided
--- NOTE | 2021-05-01 06:31 | NUR ---
Closing note Patient in bed, AAOx3, nonlabored on room air, no s/s of SOB. Slept well throughout the night. IV, L wrist SL, patent and intact. No compliant of pain or discomfort. Call light within reach, bed to lowest/locked/alarmed. On aspiration/fall precaution. All needs provided. Will endorse to day nurse.
[2021-05-01 08:06] VITALS: BP_SYST 156
[2021-05-01] MEDS: DOCUSATE SODIUM 100 MG CAPSULE PO SCH (08:54)
[2021-05-01] MEDS: METOPROLOL SUCCINATE 25 MG TAB.SR.24H (TOPROL XL) PO SCH (08:57)
[2021-05-01] MEDS: BISACODYL 5 MG TABLET.DR (DULCOLAX) PO PRN (08:58)
[2021-05-01] MEDS: SODIUM CHLORIDE 500 MG TABLET PO SCH (08:58)
[2021-05-01] MEDS: LOSARTAN POTASSIUM 50 MG TABLET (COZAAR) PO SCH (09:15)
[2021-05-01] MEDS: ENOXAPARIN SODIUM 40 MG/0.4 ML SYRINGE SUBCUT SCH (09:21)
--- NOTE | 2021-05-01 09:55 | NUR ---
CM: per Lesly/admission /Heath Roe: needs to get new auth from [facility]. Additional documents sent to [facility], health care law specialist fax# [phone], tel [phone]. I notified dr. Noonan for the peer to peer as well. Addendum: 05/01/21 at 1406 by Wilfredo Ruvalcaba RN Per Lesly: the pt is approved and the pt may transfer to snf to same assigned bed. ISAC Nicholson made aware. Addendum: 05/03/21 at 1009 by Wilfredo Ruvalcaba RN disposition 03
[2021-05-01 12:25] VITALS: BP_SYST 135
[2021-05-01 15:06] VITALS: BP_SYST 156
[2021-05-01 17:57] VITALS: BP_SYST 151
--- NOTE | 2021-05-01 18:24 | NUR ---
[facility] D/C INSTRUCTIONS GIVEN TO NURSE -LOVE IN [facility] AWARE
--- NOTE | 2021-05-02 08:32 | NUR ---
PHYSICAL THERAPY CO-SIGN The Physical Therapy Progress Notes documented by Consumer Relations Specialist have been reviewed. Reviewed/Co-Signed by: Tunde Steiner Documentation Done by: MARIBEL OWEN PTA Addendum: 05/02/21 at 0832 by Tunde Steiner PT Amended: Links added.
== END 2021-05-01 17:05 | DRG 470 ==
LOC: SMU 09:19
PROVIDERS: ADMIT Orthopaedic Surgery; ATTEND Orthopaedic Surgery
PROC: 0SRD0J9 Replacement of Left Knee Joint with Synthetic Substitute, Cemented, Open Approach (ICD-10-PCS; principal; 2021-04-18 10:30)
PROC: 30233N1 Transfusion of Nonautologous Red Blood Cells into Peripheral Vein, Percutaneous Approach (ICD-10-PCS; 2021-04-22)
DX: M17.12 Unilateral primary osteoarthritis, left knee (principal); E87.1 Hypo-osmolality and hyponatremia; D62 Acute posthemorrhagic anemia; I10 Essential (primary) hypertension; Z20.822 Contact with and (suspected) exposure to COVID-19
CPT/HCPCS: 36415; 71046-TC; 80048; 80053; 81000; 83735; 85018; 85025; 85610-TC; 85730-TC; 86886; 86900; 86901; 86920; 87081; 87086; 88305; 88307; 88311; 97110-GP; 97116-GP; 97163-GP; 97530-GP; A4649; C1713; C1776; C9290; J0690; J1100; J1170; J1650; J1885; J2250; J2405; J2704; J3010; J3490; J7120; P9021; Q0162; U0003